=== PATIENT | male | born 1935 | race Caucasian/White ===

== ENCOUNTER 2017-02-20 09:17 | Emergency (ER) | payer OTHER, MEDICARE ==
[~2017-02-20] VITALS: Ht 170.2 cm; Wt 104.3 kg
[~2017-02-20 09:17] MED LIST: ALENDRONATE SOD70 M2 PO; ALFUZOSIN HCL E10 MG PO; AMLODIPINE BESYL5 M1 PO; BACLOFEN10 M1 PO; CIPROFLOXACIN500 M2 PO; CLOPIDOGREL75 M1 PO; CRESTOR10 M1 PO; EPLERENONE25 M1 PO; FAMOTIDINE40 M1 PO; FINASTERIDE5 M1 PO; FISH OIL 1,0001 EACH PO; FLONASE ALLERG9.9 ML; GABAPENTIN600 M1 PO; LEVOTHYROXINE112 MCG PO; LOSARTAN-HCTZ1 EACH PO; NITROGLYCERIN1 EAC2 TOP; PRESERVISION A1 EAC1 PO; SERTRALINE HCL50 MG PO; SPIRIVA18 MCG INH; SYMBICORT 80-10.2 GM INH; TYLENOL EXTRA500 M2 PO; VITAMIN B-121000 MC3 PO; VITAMIN D31000 UNI2 PO
[2017-02-20 09:34] VITALS: BP 174/71
--- NOTE | 2017-02-20 09:46 | ED GI/GU/ABDOMINAL COMPLAINT ---
History of Present Illness General Chief Complaint: General Adult Stated Complaint: UTI? Source: patient Exam Limitations: no limitations Vital Signs & Intake/Output Vital Signs & Intake/Output Vital Signs Date Time Temp Pulse Resp B/P Pulse O2 O2 Flow FiO2 Ox Delivery Rate 02/20 941 96 02/20 934 97.8 63 20 174/71 96 Room Air Allergies Coded Allergies: sulfamethoxazole (From BACTRIM) (Severe, RASH 02/20/17) trimethoprim (From BACTRIM) (Severe, RASH 02/20/17) Iodinated Contrast Media - Oral and (IODINATED CONTRAST MEDIA - IV DYE) (UNKNOWN 02/20/17) Penicillins (RASH 02/20/17) hydrocodone (HALLUCINATIONS 02/20/17) oxycodone (From OXYCONTIN) (HALLUCINATIONS 02/20/17) Reconcile Medications Acetaminophen (Tylenol Extra Strength) 500 MG TABLET 1 TAB PO TID PRN PAIN ( Reported) Alendronate Sodium 70 MG TABLET 1 TAB PO QW BONE (Reported) in the morning, at least 30 minutes before the first food, beverage, or medication of the day Alfuzosin HCl (Alfuzosin HCl ER) 10 MG TAB.ER.24H 1 TAB PO DAILY UNKNOWN ( Reported) Amlodipine Besylate 5 MG TABLET 1 TAB PO DAILY HEART (Reported) Baclofen 10 MG TABLET 1 TAB PO TID UNKNOWN (Reported) Budesonide/Formoterol Fumarate (Symbicort 80-4.5 Mcg Inhaler) 10.2 GM HFA.AER.AD 2 PUF INH BID BREATHING PROBLEMS (Reported) Cholecalciferol (Vitamin D3) 1,000 UNIT TABLET 1 TAB PO DAILY SUPPLEMENT ( Reported) Ciprofloxacin HCl 500 MG TABLET 1 TAB PO BID ANTIBIOTIC, INFECTION (Reported) Clopidogrel Bisulfate (Clopidogrel) 75 MG TABLET 1 TAB PO DAILY BLOOD THINNER (Reported) Cyanocobalamin (Vitamin B-12) 1,000 MCG TABLET 1 TAB PO DAILY SUPPLEMENT ( Reported) Diphenhydramine HCl (Benadryl) 25 MG CAPSULE 1 CAP PO BID PRN RASH Doxycycline Hyclate (Vibramycin) 100 MG CAPSULE 1 CAP PO BID cellulitis Eplerenone 25 MG TABLET 1 TAB PO DAILY UNKNOWN (Reported) Famotidine 40 MG TABLET 1 TAB PO DAILY GI (Reported) Finasteride 5 MG TABLET 1 TAB PO DAILY PROSTATE (Reported) Fluticasone Propionate (Flonase Allergy Relief) 9.9 ML SPRAY.SUSP ALLERGIES ( Reported) Gabapentin 600 MG TABLET 1 TAB PO TID UNKNOWN (Reported) Levothyroxine Sodium 112 MCG TABLET 1 TAB PO DAILY AC THYROID (Reported) Losartan/Hydrochlorothiazide (Losartan-Hctz 100-12.5 MG Tab) 1 EACH TABLET 1 TAB PO DAILY HEART (Reported) Nitroglycerin (Nitroglycerin Patch) 1 EACH PATCH.TD24 0.1 MG TOP DAILY HEART (Reported) Barbeau-3 Fatty Acids/Fish Oil (Fish Oil 1,000 MG Capsule) 1 EACH CAPSULE 1 CAP PO TID SUPPLEMENT (Reported) Rosuvastatin Calcium (Crestor) 10 MG TABLET 1 TAB PO DAILY CHOLESTEROL ( Reported) Sertraline HCl 50 MG TABLET 1 TAB PO DAILY MENTAL HEALTH (Reported) Tiotropium Rio (Spiriva) 18 MCG CAP.W.DEV 1 CAP INH DAILY BREATHING PROBLEMS (Reported) Vit C/E/Zn/Coppr/Lutein/Zeaxan (Preservision Areds 2 Softgel) 1 EACH CAPSULE 1 CAP PO DAILY SUPPLEMENT (Reported) Triage Note: TRIAGE: PT TO ER WITH C/C INCREASED URINARY FREQUENCY WITH DECREASED URINARY OUTPUT. "FEELS LIKE A GIANT HANGOVER". GIVEN URINE SPECIMEN CONTAINER AT TRIAGE. Triage Nurses Notes Reviewed? yes HPI: This patient is an 81-year-old male past medical history including benign prostatic hypertrophy who presented to emergency department today accompanied by his neighbor for evaluation of urinary frequency. He reported that approximately 3 days ago he started noticing that he has to urinate every 1-2 hours. He reported that he feels like he is not emptying his ladder completely. He denied any burning or blood in the urine. Last week he did have a cystoscopy. He had urinary bleeding for a couple of days, but stopped. He reported tactile fevers. He feels like he is flushed. The patient denied any chills, chest pain, difficulty breathing, abdominal pain, or vomiting. He reported that he felt slightly nauseous this morning and then, "spit a little," and the nausea went away. He denied any other associated symptoms. (FELIPE HURLEY,BASHIR) Past History Travel History Traveled to [place] past 21 day No Medical History Any Pertinent Medical History? 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 No (BASHIR WANG PA-C) Review of Systems Review of Systems Constitutional: Reports: see HPI. EENTM: Reports: no symptoms. Respiratory: Reports: no symptoms. Cardiovascular: Reports: no symptoms. GI: Reports: see HPI. Genitourinary: Reports: see HPI. Musculoskeletal: Reports: no symptoms. Skin: Reports: no symptoms. Neurological/Psychological: Reports: no symptoms. All Other Systems: Reviewed and Negative (BASHIR WANG PA-C) Physical Exam Physical Exam Gastrointestinal: normal bowel sounds, soft, non-tender, no organomegaly, no rebound or guarding. No peritoneal signs Comments: Well-developed well-nourished person in no acute distress HEENT: Normal EENT exam, head normocephalic/atraumatic, moist mucous membranes PERRLA bilaterally Neck: Supple, no lymphadenopathy Back: Antalgic gait. Normal inspection Cardiovascular: Regular rate and rhythm with no murmurs, rubs, or gallops Respiratory: Chest nontender. No respiratory distress. Breath sounds clear to auscultation bilaterally with no wheezes, rales, or rhonchi Extremity: Normal equal pulses Neuro: Alert oriented x3, motor sensory normal, cranial nerves II through XII grossly intact. Skin: Skin is warm and dry. Psych: Mood and affect is normal Core Measures ACS in differential dx? No Severe Sepsis Present: No Septic Shock Present: No (BASHIR WANG PA-C) Progress Differential Diagnosis: AMI, appendicitis, biliary colic, bowel obstruction, colon cancer, cholecystitis, diverticulitis, epididymitis, gastritis, hepatitis, hernia, ischemic bowel, inflamm bowel dis, orchitis, pancreatitis, prostatitis, peptic ulcer, PUD/GERD, perforated viscous, pyelonephritis, STD, ureterolithiasis, urinary retention, urethritis, UTI/pyelo Plan of Care: Orders Procedure Date/time Status CASE MANAGEMENT CONSULT 02/20 1229 Active MISTAKE 02/20 1105 Active BLOOD CULTURE 02/20 110 Active LACTIC ACID 02/20 110 Complete COMPREHENSIVE METABOLIC PANEL 02/20 1023 Complete CBC WITHOUT DIFFERENTIAL 02/20 1023 Complete CULTURE,URINE 02/20 937 Active URINALYSIS 02/20 937 Complete Laboratory Tests 02/20/17 1405: Lactic Acid Cancelled 02/20/17 1138: Lactic Acid 1.0 02/20/17 1037: Anion Gap 11, Estimated GFR 53 L, BUN/Creatinine Ratio 15.4, Glucose 144 H, Calcium 10.0, Total Bilirubin 0.7, AST 25, ALT 45, Alkaline Phosphatase 50, Total Protein 7.2, Albumin 4.3, Globulin 2.9, Albumin/Globulin Ratio 1.5, CBC w Diff MAN DIFF ORDERED, RBC 3.74 L, MCV 93.5, MCH 31.7 H, RDW 13.7, MPV 7.4, Gran % 86.5 H, Lymphocytes % 4.7 L, Monocytes % 7.1, Eosinophils % 1.7, Basophils % 0 L, Absolute Granulocytes 5.8, Absolute Lymphocytes 0.3 L, Absolute Monocytes 0.5, Absolute Eosinophils 0.1, Absolute Basophils 0, Platelet Estimate VERIFIED BY SMEAR, Normocytic RBCs VERIFIED, Normochromic RBCs VERIFIED , PUBS MCHC 33.9 02/20/17 0949: Urinalysis LIGHT H, Urine Color YEL, Urine Clarity HAZY H, Urine pH 6.0, Ur Specific [place] 1.025, Urine Protein TRACE H, Urine Ketones NEG, Urine Nitrite NEG, Urine Bilirubin NEG, Urine Urobilinogen 0.2, Ur Leukocyte Esterase NEG, Ur Microscopic SEDIMENT EXAMINED, Urine RBC 1-3, Urine WBC 1-3 H, Ur Epithelial Cells MOD H, Urine Bacteria FEW H, Urine Mucus RARE, Urine Hemoglobin TRACE- INTACT H, Urine Glucose NEG Microbiology 02/20 1219 BLOOD: Blood Culture - RECD 02/20 1138 BLOOD: Blood Culture - RECD 02/20 949 URINE ROUT: Urine Culture - RECD Diagnostic Imaging: Viewed by Me: Ultrasound. Discussed w/RAD: Ultrasound. Radiology Impression: PATIENT: REYNALDO FARIAS PRESENT AGE: 81 PATIENT ACCOUNT NO: [id number] : 34 LOCATION: [facility] ORDERING PHYSICIAN: BASHIR WANG PA-C SERVICE DATE: 02/20/17 EXAM TYPE: US - US-EXT BILAT VENOUS DOPPLER EXAMINATION: US TRIPLEX LOWER EXTREMITY, BILATERAL CLINICAL INFORMATION: Lower leg edema, swelling COMPARISON: None TECHNIQUE: Color-flow triplex imaging with spectral analysis and compression Doppler were performed on the bilateral lower extremities. FINDINGS: Respiratory variation, normal compression and augmented flow are noted throughout the bilateral lower extremities. The visualized common femoral vein, superficial femoral vein, profunda femoral vein, popliteal vein and midcalf peroneal and posterior tibial venous segments show no evidence of deep venous thrombosis. There is no Almonte's cyst. IMPRESSION: Normal triplex scan without evidence of deep venous thrombosis involving the bilateral lower extremities. DICTATED BY: MADONNA CASTILLO MD DATE/ TIME DICTATED:02/20/171418 CHIPPER:LYNN DATE/TIME TRANSCRIBED: 02/20/171418 CONFIDENTIAL, DO NOT COPY WITHOUT APPROPRIATE AUTHORIZATION. < Electronically signed in Other Vendor System> SIGNED BY: MADONNA CASTILLO MD 1423 Initial ED EKG: none Comments: 02/20/2017 11:07:15 AM: The patient is now mentioning that he also noticed a rash yesterday across his chest and on his right arm. He reported that some of the rash is in between his left fingers. They called me back into the room to show me redness to his lower extremities. He has had wound care for these in the past, but his neighbor reported that she has never seen in this red. He reported that he noticed this yesterday. He reported that he did need plastic surgery done on his right lower leg for these nonhealing wounds. 02/20/2017 2:32:43 PM: I discussed this patient with Dr. Mae who was also at the patient's bedside for [id number] evaluation. This patient does not have an increase in his white blood cell count. He has been afebrile here in the emergency department. He is stable for discharge home for outpatient antibiotic therapy of cellulitis. Discussed with him the importance of returning for any fevers, spreading of redness, or for any worsening symptoms. (FELIPE HURLEY,BASHIR) Departure Departure Disposition: HOME OR SELF CARE Condition: Stable Clinical Impression Primary Impression: Cellulitis Qualifiers: Site of cellulitis: unspecified site Qualified Code: L03.90 - Cellulitis, unspecified Referrals: LOUISA MAYERS MD (PCP/Family) Additional Instructions: Please take antibiotic as prescribed and for the full duration. You may take Benadryl as needed for rash. Please follow-up with your primary care physician and return to the emergency department for any worsening symptoms or concerns. Departure Forms: Customer Survey General Discharge Information Prescriptions: Current Visit Scripts Doxycycline Hyclate (Vibramycin) 1 CAP PO BID #20 CAP Diphenhydramine HCl (Benadryl) 1 CAP PO BID PRN RASH #10 CAP (BASHIR WANG PA-C) PA/CUSTOM GRINDER Co-Sign Statement Statement: ED Attending supervision documentation- [] I saw and evaluated the patient. I have also reviewed all the pertinent lab results and diagnostic results. I agree with the findings and the plan of care as documented in the PA's/CUSTOM GRINDER's documentation. [X] I have reviewed the ED Record and agree with the PA's/CUSTOM GRINDER's documentation. [] Additions or exceptions (if any) to the PAs/CUSTOM GRINDER's note and plan are summarized below: [] (HELEN PEÑALOZA,LYNN)
[2017-02-20 10:50] LABS: ABSOLUTE BASOPHIL COUNT 0 /CUMM (0.0-0.2); ABSOLUTE EOSINOPHIL COUNT 0.1 /CUMM (0.0-0.7); ABSOLUTE GRANULOCYTE CT 5.8 /CUMM (1.4-6.5); ABSOLUTE LYMPH COUNT 0.3 /CUMM (1.2-3.4); ABSOLUTE MONOCYTE COUNT 0.5 /CUMM (0.10-0.60); BASOPHIL % 0 % (0.0-2.0); EOSINOPHIL % 1.7 % (0-5); GRANULOCYTE % 86.5 % (42.2-75.2); MEAN CORPUSCULAR HGB 31.7 PG (27.0-31.0); MEAN CORPUSCULAR HGB CONC 33.9 G/DL (33.0-37.0); MEAN CORPUSCULAR VOLUME 93.5 FL (80.0-94.0); MEAN PLATELET VOLUME 7.4 FL (7.4-10.4); PLATELET COUNT 159 /CUMM (130-400); RBC DISTRIBUTION WIDTH 13.7 % (11.5-14.5); RED BLOOD CELL CT 3.74 /CUMM (4.70-6.10); WHITE BLOOD CELL COUNT 6.7 /CUMM (4.8-10.8)
--- NOTE | 2017-02-20 14:23 | ULTRASOUND REPORT ---
EXAMINATION: US TRIPLEX LOWER EXTREMITY, BILATERAL CLINICAL INFORMATION: Lower leg edema, swelling COMPARISON: None TECHNIQUE: Color-flow triplex imaging with spectral analysis and compression Doppler were performed on the bilateral lower extremities. FINDINGS: Respiratory variation, normal compression and augmented flow are noted throughout the bilateral lower extremities. The visualized common femoral vein, superficial femoral vein, profunda femoral vein, popliteal vein and midcalf peroneal and posterior tibial venous segments show no evidence of deep venous thrombosis. There is no Almonte's cyst. IMPRESSION: Normal triplex scan without evidence of deep venous thrombosis involving the bilateral lower extremities.
[2017-02-20] MEDS ORDERED: VIBRAMYCIN100 MG PO (14:31)
[2017-02-20] MEDS ORDERED: BENADRYL25 MG PO (14:32)
--- NOTE | 2017-02-20 15:10 | NUR ---
Case Mgmnt TSF: I went in and introduced myself to patient and his neighbor. I gave them my card and brochure. Patient is fine with whatever agency for [facility]. I will set up agency and get services out for 02/21/17. CM continuing to follow.
--- NOTE | 2017-02-20 15:38 | NUR ---
Case Mgmnt TSF: I called [facility] and they will take patient on service. They will see patient on 02/21/17. I have faxed all clinical over to them. Fax confirmation received back. CM complete.
== END 2017-02-20 15:06 ==
LOC: ERH 09:17
PROVIDERS: Physician Assistant
DX: L03.90 Cellulitis, unspecified (principal); M79.89 Other specified soft tissue disorders
CPT/HCPCS: 81001; 87040; 87086; 93970